=== PATIENT | male | born 1995 | race Two or more races ===

== ENCOUNTER 2019-07-01 19:20 | Emergency (ER) | payer SELFPAY ==
[~2019-07-01] VITALS: Ht 188 cm; Wt 65.8 kg
[2019-07-01 19:20] VITALS: BP 119/84
--- NOTE | 2019-07-01 19:20 | NUR ---
ED Nurse Note: pt was brought in by ambulance for C/O substance abuse. pt stated he had meth ealier today and dont now what to do. pt is alert x4. VSS
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
--- NOTE | 2019-07-01 20:41 | NUR ---
ED Nurse Note: urine and blood sample sent down to lab
--- NOTE | 2019-07-01 20:42 | NUR ---
ED Nurse Note: pt belongings placed in locker 2
[2019-07-01 20:52] LABS: BASOPHILS % (AUTO) 1.4 % (0.0-2.0); EOSINOPHILS % (AUTO) 2.8 % (0.0-3.0); HEMATOCRIT 39.9 % (42.0-52.0); HEMOGLOBIN 14.1 G/DL (14.2-18.0); LYMPHOCYTES % (AUTO) 30.3 % (20.0-45.0); MEAN CORPUSCULAR VOLUME 83 FL (80-99); MONOCYTES % (AUTO) 7.8 % (1.0-10.0); NEUTROPHILS % (AUTO) 57.6 % (45.0-75.0); PLATELET COUNT 232 K/UL (150-450); RED BLOOD COUNT 4.82 M/UL (4.70-6.10); RED CELL DISTRIBUTION WIDTH 9.3 % (11.6-14.8)
[2019-07-01 21:06] LABS: ANION GAP 10 mmol/L (5-15); BLOOD UREA NITROGEN 26 mg/dL (7-18); CALCIUM 9.1 MG/DL (8.5-10.1); CARBON DIOXIDE 26 MMOL/L (21-32); CHLORIDE 104 MMOL/L (98-107); POTASSIUM 3.4 MMOL/L (3.5-5.1); SODIUM 140 MMOL/L (136-145)
[2019-07-01 21:18] LABS: ALANINE AMINOTRANSFERASE 45 U/L (12-78); ALBUMIN 4.1 G/DL (3.4-5.0); ALBUMIN/GLOBULIN RATIO 1.6 (1.0-2.7); ALKALINE PHOSPHATASE 67 U/L (46-116); ASPARTATE AMINO TRANSFERASE 51 U/L (15-37); BILIRUBIN,TOTAL 1.4 MG/DL (0.2-1.0)
--- NOTE | 2019-07-01 21:19 | NUR ---
ED Nurse Note: pt is hungry, sandwich and beverages provided.
[2019-07-01 21:20] LABS: BILIRUBIN,DIRECT 0.3 MG/DL (0.0-0.3)
[2019-07-01 22:01] VITALS: BP 112/80
--- NOTE | 2019-07-01 22:24 | NUR ---
ED Nurse Note: pt seen in bed talking to self. No acute distress is noted.
--- NOTE | 2019-07-01 23:21 | NUR ---
ED Nurse Note: pt in bed resting with eyes closed. appears to be sleeping. no acute distress is noted.
[2019-07-02 00:30] VITALS: BP 122/74
--- NOTE | 2019-07-02 00:31 | NUR ---
ED Nurse Note: pt in bed resting with eyes closed. no acute distress is noted.
[2019-07-02 03:38] VITALS: BP 114/81
--- NOTE | 2019-07-02 03:39 | NUR ---
ED Nurse Note: pt in bed resting with eyes closed. No acute distress is noted.
--- NOTE | 2019-07-02 05:00 | NUR ---
ED Nurse Note: pt is awake, alert, more sandwich and beverage provided.
[2019-07-02 06:10] VITALS: BP 111/84
--- NOTE | 2019-07-02 06:10 | NUR ---
ER DISCHARGE NOTE: Patient is cleared to be discharged per ERMD, pt is aox4, on room air, with stable vital signs. pt was given dc and prescription instructions, pt was able to verbalize understanding, pt id iv site removed without complications. pt is able to ambulate with steady gait. pt took all belongings.
--- NOTE | 2019-07-02 12:32 | Diagnostic Imaging Report ---
Indication: Dyspnea Comparison: None A single view chest radiograph was obtained. Findings: Cardiomediastinal appearance is within normal limits for age. The lungs are clear. Pulmonary vascularity is appropriate. The diaphragmatic contour is smooth and costophrenic angles are sharp. No pleural effusions are identified. The bones are unremarkable. Impression: No acute findings
--- NOTE | 2019-07-03 15:23 | Cardiology Report ---
APPROVED REPORT EKG Measurement Heart [id number] Normal sinus rhythm with sinus arrhythmia Normal ECG
== END 2019-07-02 06:10 | disposition home or self-care (01) ==
LOC: EDBD 19:20 → EMR 19:29
DX: F15.10 Other stimulant abuse, uncomplicated (principal); S20.219A Contusion of unspecified front wall of thorax, initial encounter; F32.9 Major depressive disorder, single episode, unspecified; F41.9 Anxiety disorder, unspecified; F31.9 Bipolar disorder, unspecified; W19.XXXA Unspecified fall, initial encounter; Y92.9 Unspecified place or not applicable
CPT/HCPCS: 36415; 71045; 80053; 80307; 82248; 85025; 93005; 99284; G0480